=== PATIENT | male | born 1970 | race Caucasian/White ===

== ENCOUNTER 2019-05-27 16:59 | Emergency (ER) | payer OTHER ==
--- NOTE | 2019-05-27 17:18 | ED Physician Documentation ---
PD HPI UPPER EXT INJURY - Stated complaint Stated Complaint: L HAND INJ - Chief complaint Chief Complaint: General - History obtained from History obtained from: Patient - History of Present Illness Location: Left, Hand Type of injury: Fall (slipped and fell this morning, with pain dorsal mid hand. 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 Concerned about fracture.) Where injury occurred: Home Timing - onset: Today (this morning) Timing - duration: Hours (12) Timing - details: Abrupt onset, Still present Improved by: Rest Worsened by: Moving, Palpating Associated symptoms: Swelling (mild dorsum mid hand). No: Weakness, Numbness Similar symptoms before: Has not had sx before Review of Systems Skin: denies: Abrasion (s), Laceration (s) Neurologic: denies: Focal weakness, Numbness PD PAST MEDICAL HISTORY - Past Medical History Past Medical History: No - Allergies Allergies/Adverse Reactions: Allergies Allergy/AdvReac Type Severity Reaction Status Date / Time No Known Drug Allergies Allergy Verified 05/27/19 17:04 PD ED PE NORMAL - Vitals Vital signs reviewed: Yes - General General: Alert and oriented X 3, No acute distress, Well developed/nourished - Derm Derm: Normal color, Warm and dry - Extremities Extremities: Other (dorsal left hand mid aspect near base of 2nd MC has local tenderness and mild swelling. No deformity. No crepitance on ROM. ) - Neuro Neuro: Alert and oriented X 3, No motor deficit, No sensory deficit Results - Vitals Vitals: Vital Signs - 24 hr 05/27/19 05/27/19 17:04 17:58 Temperature 36.8 C 36.8 C Heart Rate 76 74 Respiratory 18 16 Rate Blood Pressure 145/78 H 142/76 H O2 Saturation 98 99 Oxygen O2 Source Room air - Rads (name of study) left hand Radiology: Prelim report reviewed (no fractures), See rad report PD MEDICAL DECISION MAKING - ED course Complexity details: reviewed results, considered differential, d/w patient Departure - Departure Disposition: 01 Home, Self Care Clinical Impression: Accidental fall Qualifiers: Encounter type: initial encounter Qualified Code(s): W19.XXXA - Unspecified fall, initial encounter Sprain of hand, left Qualifiers: Encounter type: initial encounter Qualified Code(s): S63.92XA - Sprain of unspecified part of left wrist and hand, initial encounter Condition: Stable Record reviewed to determine appropriate education?: Yes Instructions: ED Sprain Hand Comments: No fractures on x-ray. Presume a sprain and will likely be sore for a few days. Tylenol or ibuprofen as needed for pains. Activity as able. Discharge Date/Time: 05/27/19 17:59
--- NOTE | 2019-05-27 17:47 | XRAY Report ---
Reason: fell this AM; pain base [facility] Procedure Date: 05/27/2019 Accession Number: [id number] / [id number] Procedure: XR - Hand 3 View LT CPT Code: FULL RESULT: EXAM: LEFT HAND RADIOGRAPHY EXAM DATE: 05/27/2019 05:35 PM. CLINICAL HISTORY: Fell this AM; pain base [facility]. COMPARISON: None. TECHNIQUE: 3 views. FINDINGS: Bones: Normal. No fractures or bone lesions. Joints: Normal. No subluxations. Soft Tissues: Normal. No soft tissue swelling. IMPRESSION: Normal left hand radiography. RADIA
[2019-05-27 17:59] VITALS: BP 142/76
== END 2019-05-27 17:59 | disposition home or self-care (01) ==
LOC: ED 16:59
DX: S63.92XA Sprain of unspecified part of left wrist and hand, initial encounter (principal); W01.0XXA Fall on same level from slipping, tripping and stumbling without subsequent striking against object, initial encounter; Y92.009 Unspecified place in unspecified non-institutional (private) residence as the place of occurrence of the external cause
CPT/HCPCS: 99282; 99283

== ENCOUNTER 2020-01-18 10:48 | Emergency (ER) | payer OTHER ==
[2020-01-18] MEDS ORDERED: HYDROcod/ACETAM 5/325 MG TABLET PO STA (11:10)
--- NOTE | 2020-01-18 11:12 | ED Physician Documentation ---
History of Present Illness - Stated complaint Stated Complaint: BACK PX/JOINT PX - Chief complaint Chief Complaint: General - History obtained from History obtained from: Patient (49-year-old gentleman with longstanding type 1 diabetes presents with a Months worth of low back pain worse with standing and movements. He had been taking a lot of ibuprofen for it. Yesterday he took an Excedrin and subsequently developed fatigue and polymyalgias and multiple joint aches especially in the knees and elbows and shoulders. He also had a subjective fever yesterday. No urinary complaints. No cough.) Review of Systems Ten Systems: 10 systems reviewed and negative Constitutional: reports: Fever, Fatigue Nose: denies: Rhinorrhea / runny nose, Congestion Throat: denies: Dental pain / toothache, Sore throat Cardiac: denies: Chest pain / pressure, Palpitations Respiratory: denies: Dyspnea PD PAST MEDICAL HISTORY - Present Medications Home Medications: Ambulatory Orders Medication Instructions Recorded Confirmed Hydrocodone/Acetaminophen 1 - 2 each PO Q6H PRN #14 tablet 01/18/20 [Hydrocodon-Acetaminophen 5-325] Insulin Glargine [Lantus Solostar] 16 unit SQ BID 01/18/20 01/18/20 Insulin Lispro [Humalog] 15 unit SUBQ ACHS 01/18/20 01/18/20 Pantoprazole [Protonix] 40 mg PO DAILY 01/18/20 01/18/20 levoFLOXacin [Levofloxacin] 500 mg PO DAILY #28 tablet 01/18/20 - Allergies Allergies/Adverse Reactions: Allergies Allergy/AdvReac Type Severity Reaction Status Date / Time No Known Drug Allergies Allergy Verified 01/18/20 11:01 PD ED PE NORMAL - Vitals Vital signs reviewed: Yes - General General: Alert and oriented X 3, No acute distress - HEENT HEENT: PERRL, EOMI - Neck Neck: Supple, no meningeal sign, No bony TTP - Cardiac Cardiac: RRR, No murmur - Respiratory Respiratory: No respiratory distress, Other (Mild expiratory wheezes, no focal findings) - Abdomen Abdomen: Non tender - Rectal Rectal: Other (Digital rectal exam demonstrates a large boggy tender prostate) - Back Back: Other (Mild lower lumbar spine tenderness without skin changes, no flank tenderness.) - Extremities Extremities: No tenderness to palpate (Major joints are palpated and ranged without tenderness or pain or effusions), Other (The patient has equal and normal Achilles and patellar reflexes bilaterally. Normal sensation in all areas of the legs. Patient denies saddle anesthesia. Normal strength in flexion-extension at the ankles, knees, and flexion of the hips.) - Neuro Neuro: Alert and oriented X 3, Normal speech Results - Vitals Vitals: Vital Signs - 24 hr 01/18/20 10:56 Temperature 37.1 C Heart Rate 74 Respiratory 14 Rate Blood Pressure 121/94 H O2 Saturation 98 Oxygen O2 Source Room air - Labs Labs: Laboratory Tests 01/18/20 01/18/20 01/18/20 11:00 11:24 11:24 WBC 17.0 H RBC 5.00 Hgb 14.7 Hct 44.2 MCV 88.4 MCH 29.4 MCHC 33.3 RDW 13.1 Plt Count 226 MPV 11.2 Neut # (Auto) 12.9 H Lymph # (Auto) 2.5 Dewitt # (Auto) 1.4 H Eos # (Auto) 0.1 Baso # (Auto) 0.1 Absolute Nucleated RBC 0.00 Nucleated RBC % 0.0 ESR 9 Sodium Potassium Chloride Carbon Dioxide Anion Gap BUN Creatinine Estimated GFR (MDRD) Glucose Glycated Hemoglobin Estim Average Glucose Calcium Total Bilirubin AST ALT Alkaline Phosphatase C-Reactive Protein Total Protein Albumin Globulin Albumin/Globulin Ratio Lipase Urine Color YELLOW Urine Clarity CLOUDY Urine pH 6.0 Ur Specific [place] 1.015 Urine Protein NEGATIVE Urine Glucose (UA) >=1000 H Urine Ketones NEGATIVE Urine Occult Blood LARGE H Urine Nitrite POSITIVE H Urine Bilirubin NEGATIVE Urine Urobilinogen 0.2 (NORMAL) Ur Leukocyte Esterase NEGATIVE Urine RBC 11-25 H Urine WBC >25 H Urine WBC Clumps PRESENT Ur Epithelial Cells FEW Transitional Ur Squamous Epith Cells RARE Squamous Urine Bacteria Many H Ur Microscopic Review INDICATED Urine Culture Comments INDICATED 01/18/20 01/18/20 11:24 11:24 WBC RBC Hgb Hct MCV MCH MCHC RDW Plt Count MPV Neut # (Auto) Lymph # (Auto) [place] # (Auto) Eos # (Auto) Baso # (Auto) Absolute Nucleated RBC Nucleated RBC % ESR Sodium 132 L Potassium 4.6 Chloride 97 L Carbon Dioxide 25 Anion Gap 10.0 BUN 15 Creatinine 0.7 Estimated GFR (MDRD) 120 Glucose 300 H Glycated Hemoglobin 11.0 H Estim Average Glucose 269 H Calcium 8.8 Total Bilirubin 0.6 AST 16 ALT 13 Alkaline Phosphatase 78 C-Reactive Protein 6.7 H Total Protein 6.9 Albumin 3.7 Globulin 3.2 Albumin/Globulin Ratio 1.2 Lipase 25 Urine Color Urine Clarity Urine pH Ur Specific [place] Urine Protein Urine Glucose (UA) Urine Ketones Urine Occult Blood Urine Nitrite Urine Bilirubin Urine Urobilinogen Ur Leukocyte Esterase Urine RBC Urine WBC Urine WBC Clumps Ur Epithelial Cells Ur Squamous Epith Cells Urine Bacteria Ur Microscopic Review Urine Culture Comments PD MEDICAL DECISION MAKING - ED course ED course: 49-year-old poorly controlled diabetic presents with low back pain, fever last night. Clinically he has evidence of UTI and prostatitis which is treated with a prolonged course of levofloxacin. Departure - Departure Disposition: Home, Self Care Clinical Impression: Prostatitis, UTI (urinary tract infection) Condition: Good Record reviewed to determine appropriate education?: Yes Instructions: ED Prostatitis Prescriptions: Hydrocodone/Acetaminophen [Hydrocodon-Acetaminophen 5-325] 1 - 2 each PO Q6H PRN #14 tablet PRN Reason: pain levoFLOXacin [Levofloxacin] 500 mg PO DAILY #28 tablet Comments: He was seen for low back pain today and there is evidence of urinary tract infection and clinically of prostatitis. Your hemoglobin A1c is 11 suggesting that your average blood sugar recently was approximately 269. Try to work on keeping her blood sugars controlled. We will do a urine culture, if it is positive we will call you in a few days if an antibiotic change is necessary. Follow-up with your doctor regardless. Return for new or worsening symptoms.
[2020-01-18 11:18] LABS: BILIRUBIN,URINE NEGATIVE (NEGATIVE); GLUCOSE, URINE (UA) >=1000 mg/dL (NEGATIVE); KETONES,URINE (UA) NEGATIVE (NEGATIVE); LEUKOCYTE ESTERASE, URINE NEGATIVE (NEGATIVE); NITRITE,URINE POSITIVE (NEGATIVE); OCCULT BLOOD,URINE LARGE (NEGATIVE); PROTEIN,URINE NEGATIVE (NEGATIVE); UROBILINOGEN,URINE 0.2 (NORMAL) E.U./dL (NORMAL)
[2020-01-18 11:20] LABS: CLARITY,URINE CLOUDY (CLEAR)
[2020-01-18 11:30] LABS: BASOPHILS # (AUTO) 0.1 10^3/uL (0.0-0.1); BASOPHILS % (AUTO) 0.5 %; EOSINOPHILS # (AUTO) 0.1 10^3/uL (0.0-0.7); EOSINOPHILS % (AUTO) 0.7 %; HGB - HEMOGLOBIN 14.7 g/dL (14.0-18.0); LYMPHOCYTES # (AUTO) 2.5 10^3/uL (1.5-3.5); LYMPHOCYTES % (AUTO) 14.6 %; MEAN CORPUSCULAR HEMOGLOBIN 29.4 pg (27.0-31.0); MEAN CORPUSCULAR HGB CONC 33.3 g/dL (32.0-36.0); MEAN CORPUSCULAR VOLUME 88.4 fL (80.0-94.0); MEAN PLATELET VOLUME 11.2 fL (7.4-11.4); MONOCYTES # (AUTO) 1.4 10^3/uL (0.0-1.0); NEUTROPHILS # (AUTO) 12.9 10^3/uL (1.5-6.6); NEUTROPHILS % (AUTO) 75.7 %; PLT - PLATELET COUNT 226 10^3/uL (130-450); RED CELL DISTRIBUTION WIDTH 13.1 % (12.0-15.0)
[2020-01-18 11:36] LABS: SQUAMOUS EPITHELIAL CELL,UR RARE Squamous (<= Few); WBC CLUMPS,URINE PRESENT
[2020-01-18 11:37] LABS: BACTERIA,URINE Many /HPF (None Seen); EPITHELIAL CELLS,UR FEW Transitional /HPF (<= Few)
[2020-01-18 11:48] LABS: ALBUMIN 3.7 g/dL (3.2-5.5); ALBUMIN/GLOBULIN RATIO 1.2 (1.0-2.2); BILIRUBIN,TOTAL 0.6 mg/dL (0.2-1.0); CALCIUM 8.8 mg/dL (8.5-10.3); CREATININE 0.7 mg/dL (0.6-1.2); CRP - C-REACTIVE PROTEIN 6.7 mg/dL (0-1.0); HB2 TOTAL 15.7 g/dL; HEMOGLOBIN A1C 1.52 g/dL; TOTAL PROTEIN 6.9 g/dL (6.7-8.2)
[2020-01-18] MEDS ORDERED: levoFLOXacin 250 MG TABLET PO STA (12:10)
[2020-01-18 12:26] VITALS: BP 120/90
== END 2020-01-18 12:25 | disposition home or self-care (01) ==
LOC: ED 10:48
DX: N39.0 Urinary tract infection, site not specified (principal); N41.9 Inflammatory disease of prostate, unspecified; E10.9 Type 1 diabetes mellitus without complications; Z79.4 Long term (current) use of insulin
CPT/HCPCS: 36415; 80053; 81001; 83036; 83690; 85025; 85651; 86140; 87086; 87181; 99283; 99284; A9270; 81003

== ENCOUNTER 2020-03-22 20:11 | Emergency (ER) | payer OTHER ==
[2020-03-22 20:24] VITALS: BP 134/76
[2020-03-22] MEDS ORDERED: HYDROmorphone 1 MG/ML CARPUJECT IM STA (20:26)
--- NOTE | 2020-03-22 20:28 | ED Physician Documentation ---
PD HPI BACK PAIN - Stated complaint Stated Complaint: BACK PX - Chief complaint Chief Complaint: Back Pain - History obtained from History obtained from: Patient (Low back pain starting this morning. He shoveled a lot of rocks yesterday. Pain is worse with movement twisting and bending. He has had it before. No weakness, numbness, tingling, or saddle anesthesia. No fevers.) Review of Systems Constitutional: denies: Fever, Chills GI: denies: Abdominal Pain, Nausea, Vomiting : denies: Dysuria, Frequency Skin: denies: Rash, Lesions Musculoskeletal: denies: Neck pain PD PAST MEDICAL HISTORY - Past Medical History Past Medical History: Yes Cardiovascular: Other Endocrine/Autoimmune: Type 2 diabetes GI: GERD - Past Surgical History Past Surgical History: No Ortho: Shoulder arthroplasty Cardiovascular: Other - Present Medications Home Medications: Ambulatory Orders Medication Instructions Recorded Confirmed Insulin Glargine [Lantus Solostar] 16 unit SQ BID 01/18/20 01/18/20 Insulin Lispro [Humalog] 15 unit SUBQ ACHS 01/18/20 01/18/20 Cyclobenzaprine [Flexeril] 10 mg PO TID PRN #10 tablet 03/22/20 Hydrocodone/Acetaminophen 1 - 2 tab PO Q6H PRN #15 tablet 03/22/20 [Hydrocodone-Acetamin 5-325 mg] - Allergies Allergies/Adverse Reactions: Allergies Allergy/AdvReac Type Severity Reaction Status Date / Time No Known Drug Allergies Allergy Verified 01/18/20 11:01 - Social History Does the pt smoke?: Yes Smoking Status: Current every day smoker Does the pt have substance abuse?: No - Immunizations Immunizations are current?: Yes PD ED PE NORMAL - Vitals Vital signs reviewed: Yes - General General: Alert and oriented X 3, Other (Comfortable at rest but winces with motion) - Abdomen Abdomen: Normal bowel sounds, Soft, Non tender - Back Back: Other (Paralumbar muscle tenderness especially on the left) - Extremities Extremities: Other (The patient has equal and normal Achilles and patellar reflexes bilaterally. Normal sensation in all areas of the legs. Patient denies saddle anesthesia. Normal strength in flexion-extension at the ankles, knees, and flexion of the hips.) - Neuro Neuro: Alert and oriented X 3, Normal speech Results - Vitals Vitals: Vital Signs - 24 hr 03/22/20 20:13 Temperature 36.3 C L Heart Rate 66 Respiratory 18 Rate Blood Pressure 134/76 H O2 Saturation 96 Oxygen O2 Source Room air PD MEDICAL DECISION MAKING - ED course ED course: This patient has seemingly uncomplicated musculoskeletal back pain. The patient has no "red flags." Specifically denies IV drug use, fevers, incontinence, saddle anesthesia. Spinal epidural abscess was considered, given that the patient has no fever, has no spinal tenderness, does not use IV drugs, and has no bilateral neurologic symptoms, the diagnosis of spinal epidural abscess is considered exceedingly unlikely. Departure - Departure Disposition: Home, Self Care Clinical Impression: Back pain Qualifiers: Back pain location: low back pain Chronicity: acute Back pain laterality: bilateral Sciatica presence: without sciatica Qualified Code(s): M54.5 - Low back pain Condition: Good Record reviewed to determine appropriate education?: Yes Instructions: ED Low Back Pain Injury Prescriptions: Cyclobenzaprine [Flexeril] 10 mg PO TID PRN #10 tablet PRN Reason: Spasms Hydrocodone/Acetaminophen [Hydrocodone-Acetamin 5-325 mg] 1 - 2 tab PO Q6H PRN #15 tablet PRN Reason: Pain Comments: Return if you do worsen, develop a fever, or any weakness, numbness, or tingling in the legs or around your privates. Or any incontinence. Do not drink or drive while taking narcotic pain medication. Note that many narcotic pain relievers also contain Tylenol/acetaminophen. Please ensure that your total dose of acetaminophen from all sources does not e xceed 3 g (3000 mg) per day. You may get constipated while on this medication. Take a stool softener such as Colace twice a day while you are on it. Also add an [id number] laxative such as senna or MiraLAX on any day that you do not have a bowel movement. If you received a narcotic pain medication or sedative while in the emergency department, do not drive for the next 24 hours. Follow-up with your doctor, next available appointment
[2020-03-22] MEDS ORDERED: HYDROcod/ACET 5/325 Prepack 4 PO STA (20:29)
== END 2020-03-22 20:48 | disposition home or self-care (01) ==
LOC: ED 20:11
DX: M54.5 Low back pain (principal); E11.9 Type 2 diabetes mellitus without complications; F17.200 Nicotine dependence, unspecified, uncomplicated; Z79.4 Long term (current) use of insulin; Z96.619 Presence of unspecified artificial shoulder joint
CPT/HCPCS: 99283; 99284; J1170

== ENCOUNTER 2020-07-22 17:48 | Emergency (ER) | payer OTHER ==
[2020-07-22 17:56] VITALS: BP 138/86
[2020-07-22] MEDS ORDERED: KETOROLAC 60 MG/2 ML VIAL IM STA (18:16)
[2020-07-22] MEDS ORDERED: HYDROcod/ACETAM 5/325 MG TABLET PO STA (18:17)
[2020-07-22] MEDS ORDERED: CYCLOBENZAPRINE 10 MG TABLET PO STA (18:17)
--- NOTE | 2020-07-22 18:25 | ED Physician Documentation ---
PD HPI BACK PAIN - Stated complaint Stated Complaint: BACK PX - Chief complaint Chief Complaint: Back Pain - History obtained from History obtained from: Patient - History of Present Illness Timing - onset: Yesterday Timing - duration: Days (2) Timing - details: Gradual onset Pain level max: 7 Pain level now: 5 Location: Mid, Lower Quality: Pain, Spasm Associated symptoms: No: Fever, Weakness, Numbness, Incontinent of urine, Unable to urinate, Hematuria, Incontinent of stool Improves with: Rest Worsened by: Movement, Lifting Contributing factors: Lifting. No: Twisting, Trauma, Anticoagulated, Cancer, IVDA, Out of meds Recently seen: Not recently seen - Additional information Additional information: Patient is a 49-year-old male who presents to the emergency department with low back pain and spasm. Similar episode 3 months ago. Worse with bending and movement. Better with rest. No IV drug use. Has not taken anything for the pain today. PD PAST MEDICAL HISTORY - Past Medical History Cardiovascular: Other Endocrine/Autoimmune: Type 2 diabetes GI: GERD - Past Surgical History Past Surgical History: No Ortho: Shoulder arthroplasty Cardiovascular: Other - Present Medications Home Medications: Ambulatory Orders Medication Instructions Recorded Confirmed Insulin Glargine [Lantus Solostar] 16 unit SQ BID 01/18/20 01/18/20 Insulin Lispro [Humalog] 15 unit SUBQ ACHS 01/18/20 01/18/20 Cyclobenzaprine [Flexeril] 10 mg PO TID PRN #10 tablet 03/22/20 Hydrocodone/Acetaminophen 1 - 2 tab PO Q6H PRN #15 tablet 03/22/20 [Hydrocodone-Acetamin 5-325 mg] Cyclobenzaprine [Flexeril] 10 mg PO TID PRN #20 tablet 07/22/20 HYDROcod/ACETAM 5/325 [[place] 5/325] 1 - 2 ea PO Q6H PRN #14 tablet 07/22/20 Meloxicam [Mobic] 7.5 mg PO BID PRN #20 tablet 07/22/20 - Allergies Allergies/Adverse Reactions: Allergies Allergy/AdvReac Type Severity Reaction Status Date / Time No Known Drug Allergies Allergy Verified 07/22/20 17:56 - Social History Does the pt smoke?: Yes Smoking Status: Current every day smoker Does the pt have substance abuse?: No - Immunizations Immunizations are current?: Yes PD ED PE NORMAL - Vitals Vital signs reviewed: Yes - General General: Alert and oriented X 3, No acute distress - HEENT HEENT: Moist mucous membranes - Neck Neck: Supple, no meningeal sign - Cardiac Cardiac: RRR, Strong equal pulses - Respiratory Respiratory: No respiratory distress, Clear bilaterally - Back Back: No spinal TTP, Other (Paraspinal spasm, right greater than left. No midline tenderness to palpation or percussion) - Derm Derm: Warm and dry - Extremities Extremities: Other (Normal bilateral lower extremity patellar and ankle jerk reflexes. Normal great toe extension bilaterally. no saddle anesthesia) - Neuro Neuro: Alert and oriented X 3, No motor deficit, No sensory deficit Results - Vitals Vitals: Vital Signs - 24 hr 07/22/20 17:52 Temperature 36 C L Heart Rate 72 Respiratory 16 Rate Blood Pressure 138/86 H O2 Saturation 100 Oxygen O2 Source Room air PD MEDICAL DECISION MAKING - ED course Complexity details: reviewed old records, considered differential (No cauda equina, no spinal epidural abscess, no fracture, no aortic dissection or evid ence of aneursym rupture), d/w patient ED course: Patient with what appears to be recurrent back spasms. Will treat with Toradol, Flexeril, hydrocodone. Will prescribe pain medication for home and encouraged him to follow-up closely with his doctor. This is the second episode in about 3 months. He would likely benefit from physical therapy. Patient counseled regarding signs and symptoms for which I believe and urgent re-evaluation would be necessary. Patient with good understanding of and agreement to plan and is comfortable going home at this time This document was made in part using voice recognition software. While efforts are made to proofread this document, sound alike and grammatical errors may occur. Departure - Departure Disposition: 01 Home, Self Care Clinical Impression: Back spasm Condition: Good Instructions: ED Spasm Back No Trauma Follow-Up: [facility] [Provider Group] [facility] [Provider Group] Prescriptions: Cyclobenzaprine [Flexeril] 10 mg PO TID PRN #20 tablet PRN Reason: Spasms Meloxicam [Mobic] 7.5 mg PO BID PRN #20 tablet PRN Reason: Pain HYDROcod/ACETAM 5/325 [[place] 5/325] 1 - 2 ea PO Q6H PRN #14 tablet PRN Reason: Pain Comments: Use the medications as prescribed. Return if you worsen. Continue gentle stretching at home. You should follow-up with your doctor for further care, you may benefit from physical therapy. Do not drink alcohol or drive while on narcotic pain medicine. Note that many narcotic pain relievers also contain tylenol/acetaminophen. Please ensure that your total dose of acetaminophen from all sources does not exceed 3 grams (3000mg) per day. You may constipated on this medication, take a stool softener such as "Colace" twice a day while you are on it. Also recommend a [id number] laxative such as senna or MiraLAX any day that you do not have a bowel movement. If you received narcotic pain medication in the emergency department, do not drive or operate machinery for the next 24 hours. Discharge Date/Time: 07/22/20 18:33
== END 2020-07-22 18:33 | disposition home or self-care (01) ==
LOC: ED 17:48
DX: M62.830 Muscle spasm of back (principal); M54.5 Low back pain; E11.9 Type 2 diabetes mellitus without complications; Z79.4 Long term (current) use of insulin; F17.200 Nicotine dependence, unspecified, uncomplicated
CPT/HCPCS: 96372; 99283; 99284; A9270

== ENCOUNTER 2021-02-26 08:13 | Emergency (ER) | payer OTHER ==
[2021-02-26 08:25] VITALS: BP 142/74
--- NOTE | 2021-02-26 08:34 | ED Physician Documentation ---
PD HPI URI - Stated complaint Stated Complaint: CONJESTION - Chief complaint Chief Complaint: Resp - History obtained from History obtained from: Patient - History of Present Illness Timing - onset: How many days ago (4) Timing duration: Days (4) Timing details: Gradual onset, Still present Associated symptoms: Nasal congestion, Sinus pain (with purulent discharge), Dry cough, Dyspnea (feeling of wheezing with activity). No: Fever, Chills, Sore throat Contributing factors: Unimmunized (has not had COVID vaccine). No: Sick contact, Immunocompromised, COPD / asthma Improves by: No: Rest Worsened by: Activity Similar symptoms before: Diagnosis (he states he gets "my summer cold" every 1-2 years, and typically treated as sinus infection, with improvement. He states he has not had exposure to COVID and declines testing for that.) Recently seen: Not recently seen Review of Systems Constitutional: reports: Fatigue. denies: Fever, Chills Nose: reports: Rhinorrhea / runny nose, Congestion (with increasing purulent drainage.), Sinus pressure / pain Throat: denies: Sore throat Cardiac: denies: Chest pain / pressure Respiratory: reports: Dyspnea, Cough, Wheezing GI: denies: Abdominal Pain, Vomiting, Diarrhea Neurologic: denies: Near syncope, Altered mental status, Headache PD PAST MEDICAL HISTORY - Past Medical History Past Medical History: Yes Cardiovascular: Other Respiratory: None Neuro: Headaches Endocrine/Autoimmune: Type 1 diabetes GI: GERD : None HEENT: None Psych: None Musculoskeletal: None Derm: None - Past Surgical History Past Surgical History: No Ortho: Shoulder arthroplasty Cardiovascular: Other - Present Medications Home Medications: Ambulatory Orders Medication Instructions Recorded Confirmed Insulin Glargine [Lantus Solostar] 16 unit SQ BID 01/18/20 01/18/20 Insulin Lispro [Humalog] 15 unit SUBQ ACHS 01/18/20 01/18/20 Cyclobenzaprine [Flexeril] 10 mg PO TID PRN #10 tablet 03/22/20 Hydrocodone/Acetaminophen 1 - 2 tab PO Q6H PRN #15 tablet 03/22/20 [Hydrocodone-Acetamin 5-325 mg] Cyclobenzaprine [Flexeril] 10 mg PO TID PRN #20 tablet 07/22/20 HYDROcod/ACETAM 5/325 [[place] 5/325] 1 - 2 ea PO Q6H PRN #14 tablet 07/22/20 Meloxicam [Mobic] 7.5 mg PO BID PRN #20 tablet 07/22/20 Albuterol Sulf [Ventolin Hfa 3 - 4 puffs INH Q4HR PRN #1 inhaler 02/26/21 Inhaler] Amoxicillin 500 mg PO TID #18 cap 02/26/21 Cetirizine [ZyrTEC] 10 mg PO BID #15 tablet 02/26/21 dexAMETHasone [Decadron] 4 mg PO DAILY #5 tablet 02/26/21 - Allergies Allergies/Adverse Reactions: Allergies Allergy/AdvReac Type Severity Reaction Status Date / Time No Known Drug Allergies Allergy Verified 02/26/21 08:25 - Social History Does the pt smoke?: Yes Smoking Status: Current every day smoker Does the pt have substance abuse?: No - Immunizations Immunizations are current?: Yes - POLST Patient has POLST: No PD ED PE NORMAL - Vitals Vital signs reviewed: Yes - General General: Alert and oriented X 3, No acute distress, Well developed/nourished - HEENT HEENT: Ears normal, Moist mucous membranes, Pharynx benign - Neck Neck: Supple, no meningeal sign, No adenopathy - Cardiac Cardiac: RRR, No murmur - Respiratory Respiratory: No respiratory distress. No: Clear bilaterally (no coarse nor wet sounds, but does have mild end-expiratory wheezing scattered. Some prolonged expiratory phase. ) - Derm Derm: Normal color, Warm and dry - Extremities Extremities: No edema - Neuro Neuro: Alert and oriented X 3, No motor deficit, Normal speech Results - Vitals Vitals: Vital Signs - 24 hr 02/26/21 08:20 Temperature 36.8 C Heart Rate 80 Respiratory 15 Rate Blood Pressure 142/74 H O2 Saturation 97 Oxygen O2 Source Room air PD MEDICAL DECISION MAKING - ED course Complexity details: reviewed old records, considered differential (seasonal allergies with congestion/cough, +/- secondary infection. Consider COVID, but he declines testing. ), d/w patient Departure - Departure Disposition: 01 Home, Self Care Clinical Impression: Acute sinusitis Qualifiers: Sinusitis location: unspecified location Recurrence: recurrent Qualified Code(s): J01.91 - Acute recurrent sinusitis, unspecified Condition: Stable Record reviewed to determine appropriate education?: Yes Instructions: ED Sinusitis Abx Tx Prescriptions: Albuterol Sulf [Ventolin Hfa Inhaler] 3 - 4 puffs INH Q4HR PRN #1 inhaler PRN Reason: Shortness Of Air/Wheezing Amoxicillin 500 mg PO TID #18 cap dexAMETHasone [Decadron] 4 mg PO DAILY #5 tablet Cetirizine [ZyrTEC] 10 mg PO BID #15 tablet Comments: Congestion and cough this time a year often related to environmental irritants or seasonal allergies that can then lead to secondary infections. As such we try to treat the combination of inflammation, congestion as well as possible infection. Use the cetirizine antihistamine twice daily for a week. Decadron steroid anti- inflammatory daily for 5 more days to help with congestion of the sinuses and bronchioles. Add albuterol inhaler 2 to 3 puffs 4 times a day for the next several days to week to help with cough and wheezing as well. Amoxicillin antibiotic as directed for potential infection bacterial as well. Given the current environment, viral infections/head cold, which includes coronavirus, are possibilities as well. The above medication should help with symptoms of that though the antibiotic would not be useful for viral causes. Recheck if not improved well over the next several days and resolved by 3 to 5 days.
[2021-02-26] MEDS ORDERED: AMOXICILLIN 250 MG CAPSULE PO STA (08:41)
[2021-02-26] MEDS ORDERED: BENZONATATE 100 MG CAPSULE PO STA (08:41)
[2021-02-26] MEDS ORDERED: DEXAMETHASONE 10 MG/ML VIAL PO STA (08:41)
[2021-02-26] MEDS ORDERED: CHERRY SYRUP 10 ML UDC PO ONE (08:41)
== END 2021-02-26 08:57 | disposition home or self-care (01) ==
LOC: ED 08:13
DX: J01.91 Acute recurrent sinusitis, unspecified (principal); R06.2 Wheezing; F17.200 Nicotine dependence, unspecified, uncomplicated; E10.9 Type 1 diabetes mellitus without complications
CPT/HCPCS: 99283; 99284; A9270

== ENCOUNTER 2021-12-20 12:11 | Emergency (ER) | payer OTHER ==
[2021-12-20 12:23] VITALS: BP 124/76
[2021-12-20] MEDS ORDERED: BACITRACIN ZINC OINT 1 PACKET TOP STA (12:49)
--- NOTE | 2021-12-20 12:53 | ED Physician Documentation ---
History of Present Illness - Stated complaint Stated Complaint: R HAND LAC - Chief complaint Chief Complaint: Laceration - History obtained from History obtained from: Patient - History of Present Illness Timing: Today Pain level max: 3 Pain level now: 2 - Additonal information Additional information: Patient is a 51-year-old male who presents to the emergency department complaining of a splinter to the right wrist and palm. He states he was unable to remove this at home. He states he can feel it under the skin. Tetanus up-to-date. Patient is right-handed Review of Systems Constitutional: denies: Fever Skin: denies: Rash Neurologic: denies: Focal weakness, Numbness PD PAST MEDICAL HISTORY - Past Medical History Cardiovascular: Other Respiratory: None Neuro: Headaches Endocrine/Autoimmune: Type 1 diabetes GI: GERD : None HEENT: None Psych: None Musculoskeletal: None Derm: None - Past Surgical History Past Surgical History: No Ortho: Shoulder arthroplasty Cardiovascular: Other - Present Medications Home Medications: Ambulatory Orders Medication Instructions Recorded Confirmed Insulin Glargine [Lantus Solostar] 16 unit SQ BID 01/18/20 01/18/20 Insulin Lispro [Humalog] 15 unit SUBQ ACHS 01/18/20 01/18/20 Cyclobenzaprine [Flexeril] 10 mg PO TID PRN #10 tablet 03/22/20 Hydrocodone/Acetaminophen 1 - 2 tab PO Q6H PRN #15 tablet 03/22/20 [Hydrocodone-Acetamin 5-325 mg] Cyclobenzaprine [Flexeril] 10 mg PO TID PRN #20 tablet 07/22/20 HYDROcod/ACETAM 5/325 [[place] 5/325] 1 - 2 ea PO Q6H PRN #14 tablet 07/22/20 Meloxicam [Mobic] 7.5 mg PO BID PRN #20 tablet 07/22/20 Albuterol Sulf [Ventolin Hfa 3 - 4 puffs INH Q4HR PRN #1 inhaler 02/26/21 Inhaler] Amoxicillin 500 mg PO TID #18 cap 02/26/21 Cetirizine [ZyrTEC] 10 mg PO BID #15 tablet 02/26/21 dexAMETHasone [Decadron] 4 mg PO DAILY #5 tablet 02/26/21 - Allergies Allergies/Adverse Reactions: Allergies Allergy/AdvReac Type Severity Reaction Status Date / Time No Known Drug Allergies Allergy Verified 02/26/21 08:25 - Social History Does the pt smoke?: Yes Smoking Status: Current every day smoker Does the pt have substance abuse?: No - Immunizations Immunizations are current?: Yes - POLST Patient has POLST: No PD ED PE NORMAL - Vitals Vital signs reviewed: Yes - General General: Alert and oriented X 3, No acute distress - Derm Derm: Warm and dry - Extremities Extremities: Other (Splinter palpable in the right hypothenar area down to the proximal crease of the wrist. NVI) - Neuro Neuro: Alert and oriented X 3 Results - Vitals Vitals: Vital Signs - 24 hr 12/20/21 12:19 Temperature 37.0 C Heart Rate 65 Respiratory 18 Rate Blood Pressure 124/76 O2 Saturation 99 Oxygen O2 Source Room air Procedures - FB removal FB location: Subcutaneous FB removal preparation: Local anesthesia-specify Removal method: Foreceps, Incision FB removal aftercare: No complications (Verbal consent obtained. 1% lidocaine with epinephrine was used to anesthetize the area. Patient tolerated well. 2 large splinters were removed from the area. The incision was mildly enlarged from the prior injury. No suturing required. Patient tolerated well. No complications.), Patient tolerated well, Removed successfully PD MEDICAL DECISION MAKING - ED course Complexity details: considered differential, d/w patient ED course: Two soft tissue foreign bodies were removed. They appeared to be 2 large splinters was made of wood. Tetanus up-to-date. Bacitracin and bandages applied. Warnings of infection and instructions on wound care given at bedside. Also counseled on how to minimize scarring. Patient counseled regarding signs and symptoms for which I believe and urgent re-evaluation would be necessary. Patient with good understanding of and agreement to plan and is comfortable going home at this time This document was made in part using voice recognition software. While efforts are made to proofread this document, sound alike and grammatical errors may occur. Departure - Departure Disposition: 01 Home, Self Care Clinical Impression: Foreign body in soft tissue Condition: Good Instructions: ED Foreign Body Soft Tissue Removed Follow-Up: your,doctor as needed [Other] Comments: Keep the wound clean. Return if you worsen, especially for redness, swelling, or drainage from the wound. Both splinters were removed today. Discharge Date/Time: 12/20/21 12:59
== END 2021-12-20 12:59 | disposition home or self-care (01) ==
LOC: ED 12:11
DX: S60.551A Superficial foreign body of right hand, initial encounter (principal); X58.XXXA Exposure to other specified factors, initial encounter; Y93.89 Activity, other specified; F17.200 Nicotine dependence, unspecified, uncomplicated
CPT/HCPCS: 10120; 99282; A9270

== ENCOUNTER 2022-05-18 08:00 | Outpatient (CLI) | payer OTHER ==
[2022-05-18 17:46] LABS: BASOPHILS % (AUTO) 0.3 %; EOSINOPHILS # (AUTO) 0.1 10^3/uL (0.0-0.7); EOSINOPHILS % (AUTO) 2.1 %; HCT - HEMATOCRIT 45.4 % (42.0-52.0); HGB - HEMOGLOBIN 14.9 g/dL (14.0-18.0); LYMPHOCYTES # (AUTO) 2.7 10^3/uL (1.5-3.5); LYMPHOCYTES % (AUTO) 44.2 %; MEAN CORPUSCULAR HEMOGLOBIN 28.4 pg (27.0-31.0); MEAN CORPUSCULAR HGB CONC 32.8 g/dL (32.0-36.0); MEAN CORPUSCULAR VOLUME 86.5 fL (80.0-94.0); MEAN PLATELET VOLUME 11.3 fL (7.4-11.4); MONOCYTES # (AUTO) 0.6 10^3/uL (0.0-1.0); NEUTROPHILS # (AUTO) 2.7 10^3/uL (1.5-6.6); NEUTROPHILS % (AUTO) 44.2 %; PLT - PLATELET COUNT 196 10^3/uL (130-450); RED BLOOD COUNT 5.25 10^6/uL (4.70-6.10); RED CELL DISTRIBUTION WIDTH 13.4 % (12.0-15.0); WHITE BLOOD COUNT 6.2 x10^3/uL (4.8-10.8)
[2022-05-18 18:12] LABS: ALBUMIN 3.9 g/dL (3.2-5.5); ALBUMIN/GLOBULIN RATIO 1.3 (1.0-2.2); BILIRUBIN,TOTAL 0.4 mg/dL (0.2-1.0); CREATININE 0.7 mg/dL (0.6-1.2); CRP - C-REACTIVE PROTEIN 1.1 mg/dL (0-1.0)
[2022-05-18 18:19] LABS: CALCIUM 9.2 mg/dL (8.5-10.3); POTASSIUM 4.6 mmol/L (3.5-5.0); THYROID STIMULATING HORMONE 0.73 uIU/mL (0.34-5.60)
[2022-05-18 20:45] LABS: ESTIMATED AVERAGE GLUCOSE 326 mg/dL (70-100)
== END 2022-05-18 23:59 | disposition home or self-care (01) ==
LOC: LAB.N 08:00
PROVIDERS: ATTEND Registered Nurse
DX: E11.9 Type 2 diabetes mellitus without complications (principal); M79.604 Pain in right leg; M54.50 Low back pain, unspecified; Z79.4 Long term (current) use of insulin
CPT/HCPCS: 36415; 80053; 83036; 84443; 85025; 86140

== ENCOUNTER → 2022-05-18 | Outpatient (CLI) | payer OTHER ==
--- NOTE | 2022-05-18 17:02 | XRAY Report ---
PROCEDURE: Lumbar Spine 2 View INDICATIONS: LOW BACK PAIN TECHNIQUE: 2 views of the lumbar spine were acquired. COMPARISON: None. FINDINGS: Bones: 5 [id number] vertebrae are present. There is normal bony alignment. No acute vertebral body compression fractures. No suspicious bony lesions. There is disc space loss, degenerative endp late changes, and small anterior endplate osteophyte formation at L5-S1. Minimal L5-S1 facet arthropa thy. Soft tissues: Overlying bowel gas pattern is normal. No suspicious soft tissue calcifications. IMPRESSION: Lumbar spine without acute radiographic abnormalities. Lower lumbar spondylosis noted at L5-S1. Reviewed by: Jesus Alberto Philip MD on 05/18/2022 5:00 PM PDT Approved by: Jesus Alberto Philip MD on 05/18/2022 5:00 PM PDT Station ID: [id number]
== END ==
LOC: DI.N 16:01
PROVIDERS: ATTEND Registered Nurse
DX: M47.817 Spondylosis without myelopathy or radiculopathy, lumbosacral region (principal)

== ENCOUNTER 2022-08-29 11:28 | Outpatient (CLI) | payer OTHER | END 2022-08-29 11:29 | disposition other institution (70) | LOC: EMS 11:28 | DX: S81.042A Puncture wound with foreign body, left knee, initial encounter (principal); W29.4XXA Contact with nail gun, initial encounter; Y93.89 Activity, other specified; Y92.009 Unspecified place in unspecified non-institutional (private) residence as the place of occurrence of the external cause | CPT/HCPCS: A0425; A0429 ==

== ENCOUNTER 2022-08-29 11:40 | Emergency (ER) | payer OTHER ==
[2022-08-29] MEDS ORDERED: TETANUS/DIPHTHERIA/PERTUSSIS 0.5 ML SYRINGE IM ONE (11:57)
[2022-08-29] MEDS ORDERED: ceFAZolin 1 GM in SODIUM CHLORIDE 0.9% MINIBAG 100 ML IV STA (12:15)
[2022-08-29] MEDS ORDERED: HYDROmorphone 1 MG/ML CARPUJECT IVP STA (12:16)
--- NOTE | 2022-08-29 12:34 | ED Physician Documentation ---
History of Present Illness - Stated complaint Stated Complaint: FB IN KNEE - Chief complaint Chief Complaint: Trauma Ext - Additonal information Additional information: 51-year-old male presents emergency department for evaluation of an embedded foreign body in his left knee. He is working at home using a nail gun when he accidentally slipped in a muddy ditch and his nail gun went off sending a 5 inch nail through the left knee. He is uncertain of his last tetanus. He is unable to extend the knee History obtained from patient. Reliable historian Review of Systems Constitutional: reports: Reviewed and negative Cardiac: reports: Reviewed and negative Respiratory: reports: Reviewed and negative Skin: reports: Other (5 inch nail embedded in the left medial knee) PD PAST MEDICAL HISTORY - Past Medical History Cardiovascular: Other Respiratory: None Neuro: Headaches Endocrine/Autoimmune: Type 1 diabetes GI: GERD : None HEENT: None Psych: None Musculoskeletal: None Derm: None - Past Surgical History Past Surgical History: No Ortho: Shoulder arthroplasty Cardiovascular: Other - Present Medications Home Medications: Ambulatory Orders Medication Instructions Recorded Confirmed Insulin Glargine [Lantus Solostar] 16 unit SQ BID 01/18/20 01/18/20 Insulin Lispro [Humalog] 15 unit SUBQ ACHS 01/18/20 01/18/20 Cyclobenzaprine [Flexeril] 10 mg PO TID PRN #10 tablet 03/22/20 Hydrocodone/Acetaminophen 1 - 2 tab PO Q6H PRN #15 tablet 03/22/20 [Hydrocodone-Acetamin 5-325 mg] Cyclobenzaprine [Flexeril] 10 mg PO TID PRN #20 tablet 07/22/20 HYDROcod/ACETAM 5/325 [[place] 5/325] 1 - 2 ea PO Q6H PRN #14 tablet 07/22/20 Meloxicam [Mobic] 7.5 mg PO BID PRN #20 tablet 07/22/20 Albuterol Sulf [Ventolin Hfa 3 - 4 puffs INH Q4HR PRN #1 inhaler 02/26/21 Inhaler] Amoxicillin 500 mg PO TID #18 cap 02/26/21 Cetirizine [ZyrTEC] 10 mg PO BID #15 tablet 02/26/21 dexAMETHasone [Decadron] 4 mg PO DAILY #5 tablet 02/26/21 cephALEXin [Keflex] 500 mg PO Q6H #28 cap 08/29/22 oxyCODONE [Roxicodone] 5 mg PO TID PRN #10 tablet 08/29/22 - Allergies Allergies/Adverse Reactions: Allergies Allergy/AdvReac Type Severity Reaction Status Date / Time No Known Drug Allergies Allergy Verified 08/29/22 11:54 - Social History Does the pt smoke?: Yes Smoking Status: Current every day smoker Does the pt have substance abuse?: No - Immunizations Immunizations are current?: Yes - POLST Patient has POLST: No PD ED PE NORMAL - General General: Alert and oriented X 3, No acute distress - HEENT HEENT: Atraumatic, Moist mucous membranes - Neck Neck: Supple, no meningeal sign. No: No adenopathy - Cardiac Cardiac: RRR, No murmur - Respiratory Respiratory: No respiratory distress, Clear bilaterally - Abdomen Abdomen: Normal bowel sounds, Soft - Extremities Extremities: Other (5 inch nail embedded thru and thru in the left medial knee. knee held in flexed position. NVI distally. 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 Eye Opening: Spontaneous Motor: Obeys Commands Verbal: Oriented GCS Score: 15 Results - Vitals Vitals: Vital Signs - 24 hr 08/29/22 08/29/22 08/29/22 11:51 12:24 12:30 Temperature 36.7 C Heart Rate 75 70 77 Respiratory 16 16 Rate Blood Pressure 157/111 H 130/76 151/59 H O2 Saturation 98 98 98 08/29/22 08/29/22 08/29/22 13:06 13:10 13:20 Temperature Heart Rate 77 77 75 Respiratory 18 16 18 Rate Blood Pressure 170/89 H 159/87 H 135/78 H O2 Saturation 98 98 98 08/29/22 08/29/22 13:29 13:43 Temperature Heart Rate 78 77 Respiratory 17 16 Rate Blood Pressure 122/78 O2 Saturation 98 Oxygen O2 Source Room air - Rads (name of study) left knee Radiology: Final report received (Soft tissue nail without evidence of osseous injury) knee s/p FB removal Radiology: Final report received (Removal of nail. Small lucency seen at the articular surface of the medial femoral condyle where the nail was positioned, which may represent a small fracture) Procedures - FB removal FB location: Subcutaneous FB removal preparation: Local anesthesia-specify (1%), Other (Conscious sedation) Removal method: Irrigated/flushed, Foreceps FB removal aftercare: No complications, Removed successfully - Procedural sedation Sedation prep: Informed consent, Time out completed, Last meal (0800 (coffee)), PE performed, ASA 3 - severe disease ((diabetes)), IV O2 monitor, ET CO2 monitor, RT present Sedation Medications: propofol Mallampati classification: III Patient status during sedation: Drowsy Sedation recovery: Recovered uneventfully, Back to baseline PD Medical Decision Making - ED course Complexity details: reviewed results, considered differential, d/w patient ED course: 51-year-old male presented to the emergency department via EMS for evaluation of a lengthy nail embedded in the left medial side of his knee. The initial x-ray indicated that it passed through the soft tissues without osseous injury. However given the depth of penetration the patient did require conscious sedation in order to remove the nail. This was successfully accomplished using propofol. Patient was administered Ancef IV prior to the nail removal and the nail and knee were thoroughly doused with betadine 10 minutes prior to removal. His tetanus was updated today in the emergency department. Please see the conscious sedation documentation. On reevaluation the x-ray suggests a possible medial femoral condyle chip fracture. Given this finding the patient was placed in a knee immobilizer and given crutches he will be referred to orthopedics for further follow-up. I am going to prescribe a limited amount of oxycodone as well as a week of cephalexin given this penetrating puncture wound. I did discuss emergent return precautions for failure of symptoms to improve or concerns of infection should they develop Departure - Departure Disposition: 01 Home, Self Care Clinical Impression: Foreign body in soft tissue, Puncture wound Fracture of medial condyle of femur Qualifiers: Encounter type: initial encounter Fracture type: closed Fracture alignment: nondisplaced Laterality: left Qualified Code(s): S72.435A - Nondisplaced fracture of medial condyle of left femur, initial encounter for closed fracture Condition: Stable Record reviewed to determine appropriate education?: Yes Instructions: ED Wound Puncture General Follow-Up: Doug Qureshi MD [Provider Admit Priv/Credential] - Prescriptions: cephALEXin [Keflex] 500 mg PO Q6H #28 cap oxyCODONE [Roxicodone] 5 mg PO TID PRN #10 tablet PRN Reason: Pain Comments: Dominic you accidentally nailed 3-1/2 inch framing nail through the medial portion of your left knee. Utilizing conscious sedation we were able to successfully remove the nail in its entirety. On reevaluation of the knee x-ray there is possibly a small medial femoral condyle fracture. At this time because of this wound was due to a penetrating nail it is important that you fill the prescription for the cephalexin and begin taking as directed. You will take this 4 times a day for the next week. I have also prescribed a limited amount of oxycodone. It is critical that you follow-up closely with orthopedics for longer-term evaluation of this. Please call the office of Dr. Qureshi To arrange follow- up. Your primary care doctor may need to make the referral for you. I would like you seen in the next 7 to 10 days. I would like you to be nonweightbearing on this left leg and use the knee immobilizers at all times with the exception of showering until you are seen by orthopedics. After showering simply apply a small amount of antibiotic ointment such as bacitracin over the wound. A simple bandage should otherwise suffice This wound is at high risk for infection. I would expect a small to moderate amount of swelling and pain however if you begin to have severe knee swelling, develop any fevers, have red streaking, have any milky drainage coming from your wounds you must return immediately to the ER for a second evaluation.
--- NOTE | 2022-08-29 12:51 | XRAY Report ---
PROCEDURE: Knee 3 View LT INDICATIONS: nail thru knee TECHNIQUE: 4 views of the left knee(s) were acquired. COMPARISON: None. FINDINGS: Bones: Metallic nail extends through the anterolateral soft tissues of the left knee. No evidence of osseous injury. Soft tissues: No joint effusion. No suspicious soft tissue calcifications. IMPRESSION: Soft tissue nail without evidence of osseous injury Reviewed by: Link Cash MD on 08/29/2022 11:49 AM [facility] Approved by: Link Cash MD on 08/29/2022 11:49 AM [facility] Station ID: [id number]
[2022-08-29] MEDS ORDERED: PROPOFOL 200 MG/20 ML VIAL IVP STA (12:54)
[2022-08-29] MEDS ORDERED: lidocaine 1% 20 ML MDV SUBQ ONE (12:55)
[2022-08-29 13:44] VITALS: BP 122/78
--- NOTE | 2022-08-29 13:55 | XRAY Report ---
PROCEDURE: Knee 3 View LT INDICATIONS: fb removal TECHNIQUE: 3 views of the left knee(s) were acquired. COMPARISON: Same-day radiograph FINDINGS: Bones: No evidence of a displaced fracture. However, and the medial femoral condyle, there is a foca l lucency, which also correspond to a previous nail position. Soft tissues: Soft tissue swelling, probable hemarthrosis, and emphysema. IMPRESSION: Removal of nail. Small lucency is seen at the articular surface of the medial femoral co ndyle where the nail was positioned, which may represent a small fracture. Reviewed by: Ahmet Rios MD on 08/29/2022 1:53 PM PST Approved by: Ahmet Rios MD on 08/29/2022 1:53 PM PST Station ID: [id number]
== END 2022-08-29 14:50 | disposition home or self-care (01) ==
LOC: EDUNIT# → ED 11:40
DX: S81.042A Puncture wound with foreign body, left knee, initial encounter (principal); X58.XXXA Exposure to other specified factors, initial encounter; F17.200 Nicotine dependence, unspecified, uncomplicated; Z23 Encounter for immunization; Z71.85 Encounter for immunization safety counseling
CPT/HCPCS: 73562; 90715; 99284; J1170; 94770

== ENCOUNTER 2022-09-04 15:07 | Outpatient (CLI) | payer OTHER ==
--- NOTE | 2022-09-05 11:43 | XRAY Report ---
PROCEDURE: Knee 4 View LT INDICATIONS: LEFT KNEE PAIN/INJURY TECHNIQUE: Four views of the left knee. COMPARISON: 08/29/2022 knee radiographs. FINDINGS: Osseous/calcific density in the region of the infrapatellar fat pad is unchanged from most recent christie or study, and again may represent fracture fragment. There is a new osseous density in the posterior joint space on the lateral view, also suspicious for fracture fragment. Large knee joint effusion. IMPRESSION: Two suspected intraosseous loose bodies suggesting fracture. CT of the left knee recommended. Reviewed by: Anup Wade MD on 09/05/2022 11:41 AM PST Approved by: Anup Wade MD on 09/05/2022 11:41 AM PST Station ID: [id number]
== END 2022-09-04 15:09 | disposition home or self-care (01) ==
LOC: DI.WOS 15:07
PROVIDERS: ATTEND Orthopaedic Surgery
DX: M23.42 Loose body in knee, left knee (principal); M25.562 Pain in left knee

== ENCOUNTER 2022-09-11 10:13 | Outpatient (CLI) | payer OTHER ==
--- NOTE | 2022-09-11 13:58 | XRAY Report ---
PROCEDURE: Knee 4 View LT INDICATIONS: LEFT KNEE PAIN POST NAIL GUN INJURY TECHNIQUE: 3 views of the left knee were acquired. COMPARISON: Left knee radiographs 08/29/2022, 1623 FINDINGS: Bones: Small focus of cortical irregularity is again seen at the articular surface of the medial fem oral condyle that likely represents a small fracture. No suspicious bony lesions. Soft tissues: Small joint effusion. Small osseous fragments again seen projecting over the infrapate llar fat pad on lateral view, suspicious for small loose osseous fragments. Mild prepatellar subcutan eous soft tissue edema. No radiopaque foreign body. IMPRESSION: Suspected small fracture/osteochondral lesion at the medial femoral condyle in the regio n of the removed foreign body. Small osseous fragments again seen suggesting intra-articular loose shanell dies. Findings could be further evaluated with CT or MRI of the knee if indicated clinically. Reviewed by: Rhys Brown MD on 09/11/2022 1:56 PM PST Approved by: Rhys Brown MD on 09/11/2022 1:56 PM PST Station ID: [id number]
== END 2022-09-11 23:59 | disposition home or self-care (01) ==
LOC: DI.WOS 10:13
PROVIDERS: ATTEND Orthopaedic Surgery
DX: M25.562 Pain in left knee (principal)

== ENCOUNTER → 2022-09-21 15:08 | Outpatient (CLI) | payer OTHER ==
--- NOTE | 2022-09-21 12:58 | XRAY Report ---
PROCEDURE: Knee 4 View LT INDICATIONS: LEFT KNEE PAIN NEW ONSET OF PAIN 2.1.23, FELT A POP GETTING UP TECHNIQUE: 4 views of the left knee were acquired. COMPARISON: Left knee radiographs 09/11/2022, 09/04/2022, 08/29/2022 FINDINGS: Bones: Cortical irregularity again seen at the weightbearing portion of the medial femoral condyle t hat does not appear significantly changed when compared to recent prior radiographs. Soft tissues: Small joint effusion. Previously seen calcification projecting over the infrapatellar fat pad on lateral view is not as well seen on the current exam. IMPRESSION: Osteochondral lesion again seen at the medial femoral condyle that does not appear signi ficantly changed. Previously seen intra-articular osseous fragments are not definitely visualized on this exam. If indicated clinically, MRI or CT could be performed for further evaluation. Reviewed by: Rhys Brown MD on 09/21/2022 12:56 PM PST Approved by: Rhys Brown MD on 09/21/2022 12:56 PM PST Station ID: [id number]
== END | disposition home or self-care (01) ==
LOC: DI.WOS 15:08
PROVIDERS: ATTEND Orthopaedic Surgery
DX: M89.9 Disorder of bone, unspecified (principal)

== ENCOUNTER 2023-03-21 23:54 | Outpatient (CLI) | payer OTHER | END 2023-03-21 23:59 | disposition EMS.NT | LOC: EMS 23:54 | DX: S01.81XA Laceration without foreign body of other part of head, initial encounter (principal); V47.6XXA Car passenger injured in collision with fixed or stationary object in traffic accident, initial encounter; Y92.414 Local residential or business street as the place of occurrence of the external cause ==

== ENCOUNTER 2024-11-28 23:13 | Inpatient (IN) ==
[2024-11-28 23:59] LABS: BASOPHILS # (AUTO) 0.1 10^3/uL (0.0-0.1); BASOPHILS % (AUTO) 0.7 %; HCT - HEMATOCRIT 43.5 % (42.0-52.0); HGB - HEMOGLOBIN 13.6 g/dL (14.0-18.0); LYMPHOCYTES # (AUTO) 1.2 10^3/uL (1.5-3.5); MEAN CORPUSCULAR HEMOGLOBIN 29.8 pg (27.0-31.0); MEAN CORPUSCULAR HGB CONC 31.3 g/dL (32.0-36.0); MEAN CORPUSCULAR VOLUME 95.2 fL (80.0-94.0); MEAN PLATELET VOLUME 11.3 fL (7.4-11.4); MONOCYTES # (AUTO) 0.6 10^3/uL (0.0-1.0); MONOCYTES % (AUTO) 5.7 %; NEUTROPHILS # (AUTO) 7.8 10^3/uL (1.5-6.6); NEUTROPHILS % (AUTO) 81.4 %; PLT - PLATELET COUNT 293 10^3/uL (130-450); RED BLOOD COUNT 4.57 10^6/uL (4.70-6.10); RED CELL DISTRIBUTION WIDTH 13.2 % (12.0-15.0); WHITE BLOOD COUNT 9.6 x10^3/uL (4.8-10.8)
[2024-11-29] LABS: VBG BASE EXCESS -19.4 mmol/L (-2 - +2); VBG PCO2 26.3 mmHg (41-51); VBG PO2 46.2 mmHg (25-47); VBG TOTAL CO2 10.3 mmol/L (24-29)
[2024-11-29 00:03] LABS: VBG PH 7.162 (7.31-7.41)
[2024-11-29 00:10] LABS: KETONES, SERUM (ACETEST) LARGE (NEGATIVE)
[2024-11-29 00:13] LABS: BILIRUBIN,URINE NEGATIVE (NEGATIVE); GLUCOSE, URINE (UA) >=1000 mg/dL (NEGATIVE); KETONES,URINE (UA) >=80 mg/dL (NEGATIVE); LEUKOCYTE ESTERASE, URINE NEGATIVE (NEGATIVE); NITRITE,URINE NEGATIVE (NEGATIVE); OCCULT BLOOD,URINE NEGATIVE (NEGATIVE); PROTEIN,URINE NEGATIVE (NEGATIVE); UROBILINOGEN,URINE 0.2 (NORMAL) E.U./dL (NORMAL)
[2024-11-29 00:18] LABS: LIPASE 21 U/L (11-82)
[2024-11-29 00:18] LABS: CLARITY,URINE CLEAR (CLEAR)
[2024-11-29] MEDS: SODIUM CHLORIDE 0.9% 500 ML IV ONE (00:19)
[2024-11-29] MEDS ORDERED: FAMOTIDINE 20 MG/2 ML VIAL IVP ONE (00:24)
[2024-11-29] MEDS ORDERED: METOCLOPRAMIDE 10 MG/2 ML VIAL ONE (00:24)
[2024-11-29] MEDS: METOCLOPRAMIDE 10 MG/2 ML VIAL IVP STA (00:25)
[2024-11-29] MEDS: FAMOTIDINE 20 MG/2 ML VIAL IVP STA (00:25)
[2024-11-29 00:28] LABS: ALBUMIN 4.3 g/dL (3.2-5.5); ALBUMIN/GLOBULIN RATIO 1.5 (1.0-2.2); ALKALINE PHOSPHATASE 107 IU/L (42-121); ALT ALANINE AMINOTRANSFERASE 11 IU/L (10-60); AST ASPARTATE AMINOTRANSFERASE 11 IU/L (10-42); BILIRUBIN,TOTAL 0.5 mg/dL (0.2-1.0); BUN - BLOOD UREA NITROGEN 29 mg/dL (6-20); CALCIUM 9.2 mg/dL (8.5-10.3); CARBON DIOXIDE - CO2 11 mmol/L (21-32); CHLORIDE 77 mmol/L (101-111); CREATININE 1.6 mg/dL (0.6-1.3); GFR - MDRD 46 (>89); GLUCOSE 752 mg/dL (74-104); POTASSIUM 5.3 mmol/L (3.5-4.5); SODIUM 121 mmol/L (135-145); TOTAL PROTEIN 7.2 g/dL (6.4-8.9)
--- NOTE | 2024-11-29 00:42 | ED Physician Documentation ---
History of Present Illness Stated complaint Stated Complaint: N/V/ HIGH BS Chief complaint Chief Complaint: Abd Pain History obtained from History obtained from: Patient Additonal information Additional information: 53-year-old man with history of type 1 diabetes presents with polydipsia, polyuria, elevated blood sugars over the past few days and nausea vomiting today with abdominal pain. Denies fever, urinary symptoms, back pain, chest pain or shortness of breath. Meds/Allgy Home Medications Ambulatory Orders Medication Instructions Recorded Confirmed insulin glargine 100 unit/mL (3 16 unit SQ BID 01/18/20 01/18/20 mL) subcutaneous pen (Lantus Solostar U-100 Insulin) insulin lispro 100 unit/mL 15 unit subcut ACHS 01/18/20 01/18/20 subcutaneous solution (Humalog U-100 Insulin) cyclobenzaprine 10 mg tablet 10 mg PO TID PRN Spasms #10 tabs 03/22/20 hydrocodone 5 mg-acetaminophen 325 1 - 2 tab PO Q6H PRN Pain #15 tabs 03/22/20 mg tablet cyclobenzaprine 10 mg tablet 10 mg PO TID PRN Spasms #20 tabs 07/22/20 hydrocodone 5 mg-acetaminophen 325 1 - 2 ea PO Q6H PRN Pain #14 tabs 07/22/20 mg tablet meloxicam 7.5 mg tablet 7.5 mg PO BID PRN Pain #20 tabs 07/22/20 albuterol sulfate 90 mcg/actuation 3 - 4 puff inhalation Q4HR PRN 02/26/21 aerosol inhaler (Ventolin HFA) Shortness Of Air/Wheezing ##1 amoxicillin 500 mg capsule 500 mg PO TID #18 caps 02/26/21 cetirizine 10 mg tablet 10 mg PO BID #15 tabs 02/26/21 dexamethasone 4 mg tablet 4 mg PO DAILY #5 tabs 02/26/21 cephalexin 500 mg capsule 500 mg PO Q6H #28 caps 08/29/22 oxycodone 5 mg tablet 5 mg PO TID PRN Pain #10 tabs 08/29/22 Allergies Allergies Allergy/AdvReac Type Severity Reaction Status Date / Time No Known Drug Allergies Allergy Verified 11/28/24 23:26 PFSH Active Problems All Active Problems (Updated 11/29/24 @ 00:42 by Paola Mi MD) DKA (diabetic ketoacidosis) (Acute) Medical History Medical History (Updated 11/29/24 @ 00:42 by Paola Mi MD) Diabetes type 1 Social History Social History Smoking Status: Current every day smoker Relationship: Do you feel safe in your home environment?: Yes Suffered physical, verbal, emotional, or financial abuse?: No History of Abuse: No POLST Patient has POLST: No Exam Exam Vital Signs: Vital Signs x48h Temp Pulse Resp BP Pulse Ox 11/28/24 23:23 36.3 C L 89 32 H 144/70 H 100 Constitutional normal general appearance, no apparent distress and average body habitus HENMT normocephalic Eyes PERRL and EOMs intact bilaterally Neck/C-Spine visual inspection normal Lymph no lymphadenopathy noted Respiratory breath sounds equal bilaterally and normal respiratory effort tachypneic Cardiovascular normal heart rate noted and regular rhythm noted Gastrointestinal abdomen normal to inspection, abdomen soft to palpation and nontender to palpation Genitourinary no CVA tenderness Results Vitals Vitals: Vital Signs - 24 hr 11/28/24 23:23 Temperature 36.3 C L Temperature Source Temporal Artery Scan Pulse Rate 89 Respiratory Rate 32 H Blood Pressure 144/70 H O2 Saturation 100 O2 Source Room air Pain Intensity 8 Oxygen O2 Source Room air Labs Labs: Laboratory Tests 11/28/24 11/28/24 11/28/24 23:31 23:42 23:49 WBC 9.6 RBC 4.57 L Hgb 13.6 L Hct 43.5 MCV 95.2 H MCH 29.8 MCHC 31.3 L RDW 13.2 Plt Count 293 MPV 11.3 Neut # (Auto) 7.8 H Lymph # (Auto) 1.2 L Moca # (Auto) 0.6 Eos # (Auto) 0.0 Baso # (Auto) 0.1 Absolute Nucleated RBC 0.00 Nucleated RBC % 0.0 VBG pH 7.162 L* VBG pCO2 26.3 L VBG pO2 46.2 VBG HCO3 9.5 L VBG Total CO2 10.3 L VBG O2 Saturation 64.0 VBG Base Excess -19.4 L Sodium 121 L Potassium 5.3 H Chloride 77 L* Carbon Dioxide 11 L* Anion Gap 33.0 H BUN 29 H Creatinine 1.6 H Estimated GFR (MDRD) 46 L Glucose 752 H* POC Whole Bld Glucose > 600 Calcium 9.2 Total Bilirubin 0.5 AST 11 ALT 11 Alkaline Phosphatase 107 Total Protein 7.2 Albumin 4.3 Globulin 2.9 Albumin/Globulin Ratio 1.5 Lipase 21 Urine Color YELLOW Urine Clarity CLEAR Urine pH 6.0 Ur Specific Alexander 1.020 Urine Protein NEGATIVE Urine Glucose (UA) >=1000 H Urine Ketones >=80 H Urine Occult Blood NEGATIVE Urine Nitrite NEGATIVE Urine Bilirubin NEGATIVE Urine Urobilinogen 0.2 (NORMAL) Ur Leukocyte Esterase NEGATIVE Ur Microscopic Review NOT INDICATED Urine Culture Comments NOT INDICATED Serum Ketones LARGE H PD Medical Decision Making ED course ED course: 53yM presents in DKA. plan to admit for treatment. Discharge Plan Discharge Patient Disposition: 66 [facility] DC/Xfer Condition: Fair Clinical Impression: DKA (diabetic ketoacidosis) Prescriptions: No Action insulin lispro [Humalog U-100 Insulin] 100 UNIT/ML solution 15 unit subcut ACHS insulin glargine [Lantus Solostar U-100 Insulin] 100 UNIT/ML insulin pen 16 unit SQ BID hydrocodone-acetaminophen 1 EACH tablet 1 - 2 tab PO Q6H PRN (Reason: Pain) Qty: 15 0RF cyclobenzaprine 10 MG tablet 10 mg PO TID PRN (Reason: Spasms) Qty: 10 0RF cyclobenzaprine 10 MG tablet 10 mg PO TID PRN (Reason: Spasms) Qty: 20 0RF hydrocodone-acetaminophen 1 TAB tablet 1 - 2 ea PO Q6H PRN (Reason: Pain) Qty: 14 0RF meloxicam 7.5 MG tablet 7.5 mg PO BID PRN (Reason: Pain) Qty: 20 0RF amoxicillin 500 MG capsule 500 mg PO TID Qty: 18 0RF cetirizine 10 MG tablet 10 mg PO BID Qty: 15 0RF dexamethasone 4 MG tablet 4 mg PO DAILY Qty: 5 0RF albuterol sulfate [Ventolin HFA] 200 PUFFS/18 GM HFA aerosol inhaler 3 - 4 puff inhalation Q4HR PRN (Reason: Shortness Of Air/Wheezing) Qty: 1 0RF cephalexin 500 MG capsule 500 mg PO Q6H Qty: 28 0RF Rx Instructions: X 7 DAYS oxycodone 5 MG tablet 5 mg PO TID PRN (Reason: Pain) Qty: 10 0RF Print Language: Yemeni Stand Alone Forms: PCP List
[2024-11-29] MEDS ORDERED: INSULIN REGULAR IN 0.9 % NS 100 UNIT/100 ML BAG IV ONE (01:07)
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
[2024-11-29] MEDS: SODIUM CHLORIDE 0.9% 2,000 ML IV ONE (01:11)
[2024-11-29] MEDS: INSULIN REGULAR IN 0.9 % NS 100 UNIT/100 ML BAG IV STA (01:14)
[2024-11-29] MEDS: INSULIN REGULAR, HUMAN 300 UNIT/3 ML PEN IVP STA (01:29)
[2024-11-29] MEDS ORDERED: SODIUM CHLORIDE FLUSH 0.9% 10 ML SYRINGE IVP PRN (02:23)
[2024-11-29 02:51] LABS: CREATININE 1.4 mg/dL (0.6-1.3); POTASSIUM 4.8 mmol/L (3.5-4.5)
--- NOTE | 2024-11-29 02:53 | HISTORY & PHYSICAL EXAMINATION ---
Chief Complaint Chief Complaint Chief Complaint: Nausea and vomiting History of Present Illness History of Present Illness HPI Comment/Other: 53 y old male with PMH DM type 1 presented to ER due to polyuria, polydispsia and high blood sugar for few days and nausea, vomiting and abdominal pain for one day. Denies fever, ALEXANDER, chest pain, SOB, Labs showed PH 7.1, blood glucose > 700, anion gap 33, low CO2, ketone positive In ER, pt was given NS 2 L IV bolus and started on insulin gtt Pt is admitted due to DKA Review of Systems Status of ROS: 10 or more systems reviewed and unremarkable except as noted in history and below PFSH Active Problems All Active Problems (Updated 11/29/24 @ 00:42 by Paola Mi MD) DKA (diabetic ketoacidosis) (Acute) Medical History Medical History (Updated 11/29/24 @ 00:42 by Paola Mi MD) Diabetes type 1 Social History Social History Smoking Status: Current every day smoker Relationship: Do you feel safe in your home environment?: Yes Suffered physical, verbal, emotional, or financial abuse?: No History of Abuse: No POLST Patient has POLST: No Meds/Allgy Home Medications Ambulatory Orders Medication Instructions Recorded Confirmed insulin glargine 100 unit/mL (3 16 unit SQ BID 01/18/20 01/18/20 mL) subcutaneous pen (Lantus Solostar U-100 Insulin) insulin lispro 100 unit/mL 15 unit subcut ACHS 01/18/20 01/18/20 subcutaneous solution (Humalog U-100 Insulin) cyclobenzaprine 10 mg tablet 10 mg PO TID PRN Spasms #10 tabs 03/22/20 hydrocodone 5 mg-acetaminophen 325 1 - 2 tab PO Q6H PRN Pain #15 tabs 03/22/20 mg tablet cyclobenzaprine 10 mg tablet 10 mg PO TID PRN Spasms #20 tabs 07/22/20 hydrocodone 5 mg-acetaminophen 325 1 - 2 ea PO Q6H PRN Pain #14 tabs 07/22/20 mg tablet meloxicam 7.5 mg tablet 7.5 mg PO BID PRN Pain #20 tabs 07/22/20 albuterol sulfate 90 mcg/actuation 3 - 4 puff inhalation Q4HR PRN 02/26/21 aerosol inhaler (Ventolin HFA) Shortness Of Air/Wheezing ##1 amoxicillin 500 mg capsule 500 mg PO TID #18 caps 02/26/21 cetirizine 10 mg tablet 10 mg PO BID #15 tabs 02/26/21 dexamethasone 4 mg tablet 4 mg PO DAILY #5 tabs 02/26/21 cephalexin 500 mg capsule 500 mg PO Q6H #28 caps 08/29/22 oxycodone 5 mg tablet 5 mg PO TID PRN Pain #10 tabs 08/29/22 Allergies Allergies Allergy/AdvReac Type Severity Reaction Status Date / Time No Known Drug Allergies Allergy Verified 11/28/24 23:26 Exam Exam Vital Signs: Vital Signs x48h Temp Pulse Resp BP Pulse Ox 11/29/24 02:13 89 20 149/67 H 99 11/29/24 01:00 101 H 18 150/66 H 99 11/29/24 00:26 99 18 155/89 H 100 11/28/24 23:56 100 18 150/89 H 99 11/28/24 23:26 37 C 99 19 147/65 H 100 11/28/24 23:26 36.4 C L 18 147/89 H 100 11/28/24 23:23 36.3 C L 89 32 H 144/70 H 100 Constitutional normal general appearance HENMT normocephalic Eyes PERRL Respiratory breath sounds equal bilaterally Cardiovascular normal heart rate noted Gastrointestinal abdomen normal to inspection Extremities normal to inspection Neurology no focal motor deficit noted Skin no rash Conclusion/Plan Problem List (1) DKA (diabetic ketoacidosis): Plan: A: DKA DM type 1 Nausea and vomiting abdominal pain Hyponatremia Hyperkalemia TABITHA Plan: Admit in ICU Start DKA protocol Cont NS @ 150 cc/h Start insulin gtt Monitor Blood glucose Q1H Check BMP Q2H Zofran iv prn DVT prophylaxic: SCD Full code Pt is admitted as inpatient as more than 2 midnight stay is expected Lab Results 11/28/24 23:49 11/28/24 23:49
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
--- NOTE | 2024-11-29 02:55 | HISTORY & PHYSICAL EXAMINATION ---
History of Present Illness History of Present Illness HPI Comment/Other: 53 y old male with PMH DM type 1 presented to ER due to polyuria, polydispsia and high blood sugar for few days and nausea, vomiting and abdominal pain for one day. Denies fever, ALEXANDER, chest pain, SOB, Labs showed PH 7.1, blood glucose > 700, anion gap 33, low CO2, ketone positive In ER, pt was given NS 2 L IV bolus and started on insulin gtt Pt is admitted due to DKA Meds/Allgy Home Medications Ambulatory Orders Medication Instructions Recorded Confirmed insulin glargine 100 unit/mL (3 16 unit SQ BID 01/18/20 01/18/20 mL) subcutaneous pen (Lantus Solostar U-100 Insulin) insulin lispro 100 unit/mL 15 unit subcut ACHS 01/18/20 01/18/20 subcutaneous solution (Humalog U-100 Insulin) cyclobenzaprine 10 mg tablet 10 mg PO TID PRN Spasms #10 tabs 03/22/20 hydrocodone 5 mg-acetaminophen 325 1 - 2 tab PO Q6H PRN Pain #15 tabs 03/22/20 mg tablet cyclobenzaprine 10 mg tablet 10 mg PO TID PRN Spasms #20 tabs 07/22/20 hydrocodone 5 mg-acetaminophen 325 1 - 2 ea PO Q6H PRN Pain #14 tabs 07/22/20 mg tablet meloxicam 7.5 mg tablet 7.5 mg PO BID PRN Pain #20 tabs 07/22/20 albuterol sulfate 90 mcg/actuation 3 - 4 puff inhalation Q4HR PRN 02/26/21 aerosol inhaler (Ventolin HFA) Shortness Of Air/Wheezing ##1 amoxicillin 500 mg capsule 500 mg PO TID #18 caps 02/26/21 cetirizine 10 mg tablet 10 mg PO BID #15 tabs 02/26/21 dexamethasone 4 mg tablet 4 mg PO DAILY #5 tabs 02/26/21 cephalexin 500 mg capsule 500 mg PO Q6H #28 caps 08/29/22 oxycodone 5 mg tablet 5 mg PO TID PRN Pain #10 tabs 08/29/22 Allergies Allergies Allergy/AdvReac Type Severity Reaction Status Date / Time No Known Drug Allergies Allergy Verified 11/28/24 23:26 PFSH Active Problems All Active Problems (Updated 11/29/24 @ 00:42 by Paola Mi MD) DKA (diabetic ketoacidosis) (Acute) Medical History Medical History (Updated 11/29/24 @ 00:42 by Paola Mi MD) Diabetes type 1 Social History Social History Smoking Status: Current every day smoker Relationship: Do you feel safe in your home environment?: Yes Suffered physical, verbal, emotional, or financial abuse?: No History of Abuse: No POLST Patient has POLST: No Review of Systems Status of ROS: 10 or more systems reviewed and unremarkable except as noted in history and below Exam Exam Vital Signs: Vital Signs x48h Temp Pulse Resp BP Pulse Ox 11/29/24 02:13 89 20 149/67 H 99 11/29/24 01:00 101 H 18 150/66 H 99 11/29/24 00:26 99 18 155/89 H 100 11/28/24 23:56 100 18 150/89 H 99 11/28/24 23:26 37 C 99 19 147/65 H 100 11/28/24 23:26 36.4 C L 18 147/89 H 100 11/28/24 23:23 36.3 C L 89 32 H 144/70 H 100 Constitutional normal general appearance HENMT normocephalic Eyes PERRL Respiratory breath sounds equal bilaterally Cardiovascular normal heart rate noted Gastrointestinal abdomen normal to inspection Extremities normal to inspection Neurology no focal motor deficit noted Skin no rash Conclusion/Plan Problem List (1) DKA (diabetic ketoacidosis): Plan: A: DKA DM type 1 Nausea and vomiting abdominal pain Hyponatremia Hyperkalemia TABITHA Plan: Admit in ICU Start DKA protocol Cont NS @ 150 cc/h Start insulin gtt Monitor Blood glucose Q1H Check BMP Q2H Zofran iv prn DVT prophylaxic: SCD Full code Pt is admitted as inpatient as more than 2 midnight stay is expected Lab Results 11/28/24 23:49 11/29/24 02:16
[2024-11-29 03:04] LABS: VBG BASE EXCESS -22.9 mmol/L (-2 - +2); VBG PCO2 16.2 mmHg (41-51); VBG PO2 171.6 mmHg (25-47); VBG TOTAL CO2 6.4 mmol/L (24-29)
[2024-11-29 03:08] LABS: VBG PH 7.167 (7.31-7.41)
[2024-11-29 03:47] LABS: MAGNESIUM 1.9 mg/dL (1.7-2.3)
[2024-11-29] MEDS: SODIUM CHLORIDE 0.9% 1,000 ML IV SCH (03:49)
[2024-11-29 03:55] LABS: CALCIUM 8.2 mg/dL (8.5-10.3); CREATININE 1.4 mg/dL (0.6-1.3); POTASSIUM 4.6 mmol/L (3.5-4.5)
[2024-11-29 04:53] LABS: CALCIUM 8.3 mg/dL (8.5-10.3); CREATININE 1.3 mg/dL (0.6-1.3); POTASSIUM 4.3 mmol/L (3.5-4.5)
[2024-11-29 05:59] LABS: BILIRUBIN,URINE NEGATIVE (NEGATIVE); GLUCOSE, URINE (UA) >=1000 mg/dL (NEGATIVE); KETONES,URINE (UA) >=80 mg/dL (NEGATIVE); LEUKOCYTE ESTERASE, URINE NEGATIVE (NEGATIVE); NITRITE,URINE NEGATIVE (NEGATIVE); OCCULT BLOOD,URINE NEGATIVE (NEGATIVE); PROTEIN,URINE NEGATIVE (NEGATIVE); UROBILINOGEN,URINE 0.2 (NORMAL) E.U./dL (NORMAL)
[2024-11-29 06:01] LABS: CLARITY,URINE CLEAR (CLEAR)
[2024-11-29 06:02] LABS: HCG UR QUAL NEGATIVE
[2024-11-29 06:09] LABS: CALCIUM 8.3 mg/dL (8.5-10.3); CREATININE 1.3 mg/dL (0.6-1.3); POTASSIUM 4.2 mmol/L (3.5-4.5)
[2024-11-29] MEDS: DEXTROSE 5%-0.9% NACL 1,000 ML IV SCH (07:32)
[2024-11-29] MEDS ORDERED: D5.45NS W/20 MEQ KCL 1,000 ML IV SCH (08:00)
[2024-11-29] MEDS ORDERED: SODIUM CHLORIDE 0.9% 1,000 ML IV SCH (08:00)
[2024-11-29] MEDS: ENOXAPARIN 40 MG/0.4 ML SYRINGE SUBQ SCH (09:01)
[2024-11-29] MEDS: SODIUM CHLORIDE FLUSH 0.9% 10 ML SYRINGE IVP SCH (09:02)
[2024-11-29 09:47] LABS: AMPHETAMINE SCREEN,URINE POSITIVE (NEGATIVE); BARBITURATE SCREEN,UR NEGATIVE (NEGATIVE); BENZODIAZEPINES SCREEN, URINE NEGATIVE (NEGATIVE); BUPRENORPHINE SCREEN, URINE NEGATIVE (NEGATIVE); COCAINE SCREEN URINE NEGATIVE (NEGATIVE); METHADONE SCREEN, URINE NEGATIVE (NEGATIVE); METHAMPHETAMINES SCREEN, URINE POSITIVE (NEGATIVE); OPIATE SCREEN, URINE NEGATIVE (NEGATIVE); OXYCODONE SCREEN, URINE NEGATIVE (NEGATIVE); THC CANNABINOID SCREEN, URINE NEGATIVE (NEGATIVE); TRICYCLIC ANTIDEPRESSANT,URINE NEGATIVE (NEGATIVE)
[2024-11-29 10:18] LABS: CALCIUM 8.3 mg/dL (8.5-10.3); MAGNESIUM 1.9 mg/dL (1.7-2.3)
[2024-11-29 10:23] LABS: CALCIUM 8.4 mg/dL (8.5-10.3); CREATININE 1.1 mg/dL (0.6-1.3); PHOSPHORUS 2.5 mg/dL (2.5-5.0); POTASSIUM 3.8 mmol/L (3.5-4.5)
[2024-11-29] MEDS: NICOTINE 14 MG PATCH TOP SCH (13:53)
[2024-11-29] MEDS: INSULIN GLARGINE-YFGN 300 UNIT/3 ML PEN SUBQ SCH ×2 (13:54→21:58)
--- NOTE | 2024-11-29 15:22 | PHARMACY PROGRESS NOTE ---
Best Possible Medication History Admit Date and Time: 11/29/24 [id number] Home Medications Medication Instructions Recorded Confirmed Type esomeprazole magnesium 20 mg 20 mg PO DAILY 11/29/24 11/29/24 History capsule,delayed release (Nexium) Processed by: Pharmacy Medications reviewed in ED?: Yes Medication History completed: Yes Patient Interview: Pt interview ONLY source BPM Statement: As the person ultimately responsible for medication therapy, providers are able to order a medication from an existing home medication list in [facility] via the "Reconcile Routine" prior to Confirmation of that medication by senior administrative support. Such practice is discouraged except when the physician, in their clinical judgment, deems that a medical need exists for a medication without regard to previous use.
[2024-11-29] MEDS: INSULIN LISPRO 300 UNIT/3 ML PEN SUBQ SCH ×2 (17:08→17:09)
[2024-11-30 05:25] LABS: CALCIUM, IONIZED 1.21 mmol/L (1.09-1.30)
[2024-11-30 05:43] LABS: CALCIUM 8.4 mg/dL (8.5-10.3); CREATININE 0.8 mg/dL (0.6-1.3); POTASSIUM 3.3 mmol/L (3.5-4.5)
[2024-11-30 05:44] LABS: MAGNESIUM 1.8 mg/dL (1.7-2.3); PHOSPHORUS 2.2 mg/dL (2.5-5.0)
[2024-11-30 07:56] LABS: ESTIMATED AVERAGE GLUCOSE 246 mg/dL (70-100); HEMOGLOBIN A1c% 10.2 % (4.27-6.07)
[2024-11-30 08:10] LABS: BASOPHILS % (AUTO) 0.5 %; EOSINOPHILS # (AUTO) 0.1 10^3/uL (0.0-0.7); EOSINOPHILS % (AUTO) 1.6 %; HCT - HEMATOCRIT 40.1 % (42.0-52.0); HGB - HEMOGLOBIN 13.1 g/dL (14.0-18.0); LYMPHOCYTES # (AUTO) 3.1 10^3/uL (1.5-3.5); LYMPHOCYTES % (AUTO) 37.7 %; MEAN CORPUSCULAR HEMOGLOBIN 29.2 pg (27.0-31.0); MEAN CORPUSCULAR HGB CONC 32.7 g/dL (32.0-36.0); MEAN CORPUSCULAR VOLUME 89.3 fL (80.0-94.0); MEAN PLATELET VOLUME 10.6 fL (7.4-11.4); MONOCYTES # (AUTO) 0.6 10^3/uL (0.0-1.0); MONOCYTES % (AUTO) 7.5 %; NEUTROPHILS # (AUTO) 4.4 10^3/uL (1.5-6.6); NEUTROPHILS % (AUTO) 52.5 %; PLT - PLATELET COUNT 231 10^3/uL (130-450); RED BLOOD COUNT 4.49 10^6/uL (4.70-6.10); RED CELL DISTRIBUTION WIDTH 12.9 % (12.0-15.0); WHITE BLOOD COUNT 8.3 x10^3/uL (4.8-10.8)
[2024-11-30] MEDS: POTASSIUM CHLORIDE 20 MEQ TABLET PO ONE (08:18)
[2024-11-30] MEDS: NEUTRA-PHOS 250 MG TABLET PO SCH (08:19)
[2024-11-30] MEDS: MAGNESIUM OXIDE 400 MG TABLET PO ONE (09:08)
[2024-11-30] MEDS: INSULIN REGULAR IN 0.9 % NS 100 UNIT/100 ML BAG IV SCH (09:34)
[2024-11-30 12:06] VITALS: BP 164/91; TEMP 98.4
[2024-11-30 13:02] VITALS: O2SAT 97
--- NOTE | 2024-12-01 07:30 | Discharge Summary ---
Discharge Summary Admit Date: 11/29/24 Discharge Date: 11/30/24 Discharging Provider: Sally Martin MD Primary Care Provider: needs to get a PCP Code Status: Attempt Resuscitation DIAGNOSES Discharge Diagnoses with Status of Each Condition: 1. Diabetic ketoacidosis 2. Type 1 diabetes mellitus uncontrolled with hyperglycemia 3. Noncompliance 4. Nausea and vomiting 5. Abdominal pain 6. Hyponatremia 7. Hyperkalemia 8. Acute kidney injury 9. Methamphetamine abuse HPI History of Present Illness: 53 y old male with PMH DM type 1 presented to ER due to polyuria, polydispsia and high blood sugar for few days and nausea, vomiting and abdominal pain for one day. Denies fever, ALEXANDER, chest pain, SOB. He is currently without a domicile. His girlfriend threw him out for 5 days ago. He has been living in his truck. Sometimes staying on a friend's couch. He is from [place]. He without legal status. As such, he is unable to have insurance or pharmacy benefit plan. He goes without insulin for weeks at a time. Most recently he has been getting his insulin from a friend. That friend had a close relative that is . The person had quite a bit of insulin leftover. So he has been using his friend's relatives insulin until it ran out. Labs showed PH 7.1, blood glucose > 700, anion gap 33, low CO2, ketone positive In ER, pt was given NS 2 L IV bolus and started on insulin gtt Pt is admitted due to DKA HOSPITAL COURSE Hospital Course: The patient was placed in the intensive care unit and started on the DKA protocol requiring insulin drip, frequent checks of potassium, phosphorus, calcium, magnesium. All of those were supplemented as necessary. His sugar gradually came down to an acceptable level or I could start him on a low-carb diet and resume his Lantus. He is on Lantus 16 units twice a day. And was taking an unknown amount of short acting insulin before each meal. Here he was on 5 units before each meal. He continues not to have any access to a pharmacy benefit plan and cannot afford buying insulin. As such I have prescribed his medications to [facility] with [facility]cher from the [employer]. I explained to him that if given over a months worth of medication and I am hoping that he can work with social work and trying to find a better source of his insulin. Even if it means getting it from [facility]. Toxicology screen showed this patient to have problems with positive amphetamines and methamphetamines. All else was negative. Ethyl alcohol level less than 10. The patient is anxious to leave and that he has a court date on December 01. His orchid grower states that he must show up for that court date. At discharge he is an alert oriented disheveled white male who looks very fatigued, older than his stated age. Temperature is 36.9. Heart rate 66. Respirations 16. O2 sat 97% on room air. Blood pressure 164/91. ALLERGIES Allergies Allergy/AdvReac Type Severity Reaction Status Date / Time No Known Drug Allergies Allergy Verified 11/28/24 23:26 MEDICATIONS Ambulatory Orders Medication Instructions Recorded Confirmed esomeprazole magnesium 20 mg 20 mg PO DAILY 11/29/24 11/29/24 capsule,delayed release (Nexium) blood-glucose meter #1 ea 11/30/24 insulin glargine-yfgn 100 unit/mL 16 unit (0.16 mL) subcut BIDAC #15 11/30/24 (3 mL) subcutaneous pen mL insulin lispro 100 unit/mL 5 unit (0.05 mL) subcut TIDWM #15 11/30/24 subcutaneous pen (Humalog KwikPen mL (U-100) Insulin) lancets-blood glucose test #1 11/30/24 strips-pen needles with gauze kit pen needle, diabetic 29 gauge x #100 ea 11/30/24 1/2" (Ultra-Thin II Insulin Pen [place]) LABS 11/30/24 08:04 11/30/24 04:15 Discharge Plan Discharge Patient Disposition: Home, Self Care Condition: Fair Medically Cleared Date:: 11/30/24 Prescriptions: New insulin glargine-yfgn 100 unit/mL (3 mL) Insulin Pen 16 unit subcut BIDAC Qty: 15 0RF insulin lispro [Humalog KwikPen Insulin] 100 unit/mL Insulin Pen 5 unit subcut TIDWM Qty: 15 0RF (DME) pen needle, diabetic [Ultra-Thin II Ins Pen [place]] 29 gauge x 1/2" needle See Rx Instructions .Route Qty: 100 0RF Rx Instructions: As directed (DME) blood-glucose meter Misc See Rx Instructions .Route Qty: 1 0RF Rx Instructions: As directed (DME) lancet-gluc nfntr-vwwrpq-phbci Kit See Rx Instructions .Route Qty: 1 0RF Rx Instructions: As directed Continued esomeprazole magnesium [Nexium] 20 mg capsule,delayed release(DR/EC) 20 mg PO DAILY Activity Restrictions: Activity as Tolerated Diet: Diabetic Health Concerns: You have type 1 diabetes mellitus and cannot have access to medications. You have no income, no appointment, and are relying on friends to give you diabetic supplies. Sometimes you are able to take insulin, sometimes you or not. You have not been able to have any insulin over the last few days and became ill. You came to the emergency room and were found to have diabetic ketoacidosis. Will place you in the ICU and gave you an intravenous insulin drip. Lowered your glucose. Monitored your electrolytes for calcium, magnesium, potassium and phosphorus. We supplemented you as needed. We finally were able to get you off the drip and you are on Lantus 16 units twice a day. +5 units of short acting lispro with each meal. I am sending a prescription to [facility]. My plan is for you to cigar packer and picker a months worth of medication at no cost to you since you desperately need this medicine. You and social work will then figure out a plan for establishing yourself with a primary care provider so that you can get a regular prescription for your medications. Print Language: Persian Patient Instructions: DKA Prevent Ch Stand Alone Forms: PCP List Follow-up Care: Tristen Boateng MD [Primary Care Provider] -
== END 2024-11-30 13:55 | disposition home or self-care (01) | DRG 638 ==
LOC: ED 23:13 → ICU 11-29 02:48
PROVIDERS: ADMIT Internal Medicine; ATTEND Internal Medicine